=== PATIENT | female | born 1990 | race Two or more races ===

== ENCOUNTER 2024-01-03 10:14 | Emergency (ER) | payer OTHER ==
[~2024-01-03] VITALS: Ht 165.1 cm; Wt 55.8 kg
[2024-01-03 11:08] LABS: HEMATOCRIT 39.3 % (36.0-45.00); HEMOGLOBIN 13.7 g/dL (12.0-15.00); MEAN CELL VOLUME 84.7 fL (80.00-100.00); MEAN CORPUSCULAR HEMOGLOBIN 29.5 pg (27.00-32.0); MEAN CORPUSCULAR HGB CONC 34.8 g/dl (32.0-36.0); PLATELET COUNT 269 K/uL (150-450); RED BLOOD COUNT 4.63 M/uL (4.00-6.00); RED CELL DISTRIBUTION WIDTH 14.1 % (11.5-14.5)
[2024-01-03 11:37] LABS: ALBUMIN 4.1 gm/dL (3.4-5.0); ALKALINE PHOSPHATASE 84 U/L (50-136); ALT/SGPT 19 U/L (12-78); ANION GAP 12 (10.0-20.0); AST/SGOT 14 U/L (15-37); BLOOD UREA NITROGEN 8 mg/dL (7-18); BUN CREA RATIO 12 (7.0-25.0); CALCIUM 9.6 mg/dL (8.5-10.1); CARBON DIOXIDE 24 mEq/L (21-32); CHLORIDE 107 mmol/L (98-107); CREATININE SERUM 0.69 mg/dL (0.55-1.02); GFR 98.59; GLOBULINA 4.7 G/DL (2.4-3.5); GLUCOSE FASTING 88 mg/dL (65-100); OSMOLALITY SERUM 275 MOSM/KG (275-295); POTASSIUM 3.74 mEq/L (3.5-5.1); SODIUM 139 mmol/L (136-145); TOTAL PROTEIN 8.8 gm/dL (6.4-8.2)
[2024-01-03 11:48] LABS: HCG QUANTITATIVE < 1 mUI/mL (1-3)
== END 2024-01-03 12:47 | disposition home or self-care (01) ==
LOC: ER 10:16
PROVIDERS: General Practice
DX: R53.81 Other malaise (principal); Z20.822 Contact with and (suspected) exposure to COVID-19